=== PATIENT | male | born 1955 | race Caucasian/White ===

== ENCOUNTER 2018-12-20 09:42 | Observation (INO) | payer MEDICARE ==
--- NOTE | 2018-12-20 10:18 | ER Document Report ---
ED General - General Chief Complaint: Altered Mental Status Stated Complaint: CONFUSION Time Seen by Provider: 12/20/18 09:57 Information source: Patient Notes: 63-year-old male with past medical history of high blood pressure who presents today with his after the patient had sexual intercourse this morning. Abo ut 10 minutes after sexual intercourse the patient was walking around and was confused, as noted by the . No focal weakness or numbness, facial drooping, or chest pain. The patient denies any and all headache or neck pain. Patient denies any sildenafil or Viagra or other rectal medications. This lasted around 45 minutes. Patient is currently symptom-free and is back to baseline according to patient's and patient. No history of this previously. Patient does have a high blood pressure and has been slightly decreasing his metoprolol secondary to sexual dysfunction caused by this medication. - HPI Onset: Other - See above Associated symptoms: Other - See above Exacerbated by: Denies Relieved by: Denies Similar symptoms previously: No Recently seen / treated by doctor: No - Related Data Allergies/Adverse Reactions: No Known Allergies Allergy (Unverified 12/20/18 09:44) Past Medical History - Social History Smoking Status: Unknown if Ever Smoked Family History: Reviewed & Not Pertinent Review of Systems - Review of Systems Constitutional: denies: Fever EENT: denies: Eye discharge, Nose discharge Cardiovascular: denies: Chest pain, Palpitations, Syncope Respiratory: denies: Short of breath Gastrointestinal: denies: Vomiting Genitourinary: denies: Dysuria Musculoskeletal: denies: Leg swelling Skin: Other - no hives. denies: Rash Neurological/Psychological: Other - no slurred speech -: Yes All other systems reviewed and negative Physical Exam - Vital signs Vitals: Temp Pulse Resp BP Pulse Ox 97.6 F 78 16 160/99 H 100 12/20/18 09:54 12/20/18 09:54 12/20/18 09:54 12/20/18 09:54 12/20/18 09:54 Notes: Reviewed vital signs and nursing note as charted by RN. CONSTITUTIONAL: Alert and oriented and responds appropriately to questions. Well-appearing; well-nourished HEAD: Normocephalic; atraumatic EYES: PERRL; full extraocular range of motion without nystagmus noted ENT: Normal nose; no rhinorrhea; moist mucous membranes; pharynx without lesions noted NECK: Supple without meningismus; non-tender; no cervical lymphadenopathy, no masses CARD: Regular rate and rhythm; no murmurs; symmetric distal pulses RESP: Normal chest excursion without splinting or tachypnea; breath sounds clear and equal bilaterally ABD/GI: Normal bowel sounds; non-distended; soft, non-tender; no palpable organomegaly or masses BACK: The back appears normal and is non-tender to palpation EXT: Normal ROM in all joints; non-tender to palpation; no edema SKIN: No acute lesions noted NEURO: CN 2-12 intact; 5/5 bilateral upper and lower extremity strength with sensation intact to light touch; no cerebellar deficits. NIH score of 0 taken at 10:02 AM PSYCH: The patient's mood and manner are appropriate. Grooming and personal hygiene are appropriate. Course - Re-evaluation Re-evalutation: 12/20/18 10:16 Given the history and physical examination with an NIH score of 0, I do not believe that the patient is a TPA candidate at this time. Given the lack of headache, neck pain, no recent trauma, no current focal neurological deficits, I do believe subarachnoid hemorrhage to be extremely unlikely. Patient symptoms have completely resolved. I am concerned mostly about a TIA at this moment. If the CT scan of the head is unremarkable, I will provide aspirin and most likely admit the patient for further assessment and evaluation. EKG shows a heart of 89, abnormal rhythm with what appears to be dropped beats with no obvious signs of [place] prolongation. No ST elevation or depression. Patie nt is on the monitor. Cardiology has been consulted. 12/20/18 10:25 Repeat EKG shows a heart rate of 92, normal sinus rhythm, no ST elevation or depression, less rhythmic pattern showing what appears to be PACs. Dr. Lester the rural route carrier will review the EKGs himself personally. 12/20/18 10:36 Hair Boiler Operator called back and states he believes it is just frequent PACs. Still no focal neurological deficits. 12/20/18 11:21 CT scan of the head as recorded. Still no focal neurological deficits or confusion. Patient will be admitted to the hospitalist for further evaluation and treatment. Aspirin has been provided. - Vital Signs Vital signs: Temp Pulse Resp BP Pulse Ox 97.6 F 78 16 160/99 H 100 12/20/18 09:54 12/20/18 09:54 12/20/18 09:54 12/20/18 09:54 12/20/18 09:54 - Laboratory Result Diagrams: 12/20/18 10:00 12/20/18 10:00 Laboratory results interpreted by me: 12/20/18 10:00 Monocytes % 17.3 H Discharge - Discharge Clinical Impression: TIA (transient ischemic attack) Condition: Fair Disposition: ADMITTED OBSERVATION Admitting Provider: Hospitalist Unit Admitted: Telemetry
[2018-12-20 10:38] LABS: ABSOLUTE BASOPHILS # (AUTO) 0.1 10^3/uL (0.0-0.2); ABSOLUTE EOSINOPHILS # (AUTO) 0.1 10^3/uL (0.0-0.6); ABSOLUTE LYMPHOCYTES (AUTO) 1.1 10^3/uL (0.5-4.7); ABSOLUTE MONOCYTES (AUTO) 1.2 10^3/uL (0.1-1.4); ABSOLUTE NEUT (AUTO) 4.4 10^3/uL (1.7-8.2); BASOPHILS % (AUTO) 0.9 % (0-2); EOSINOPHILS % (AUTO) 0.8 % (0-6); HEMOGLOBIN 14.8 g/dL (13.5-17.0); LYMPHOCYTES % (AUTO) 16.2 % (13-45); MEAN CORPUSCULAR HEMOGLOBIN 32.8 pg (27.0-33.4); MEAN CORPUSCULAR HGB CONC 35.3 g/dL (32.0-36.0); MEAN CORPUSCULAR VOLUME 93 fl (80-97); MONOCYTES % (AUTO) 17.3 % (3-13); PLATELET COUNT 247 10^3/uL (150-450); RED BLOOD COUNT 4.51 10^6/uL (4.35-5.55); RED CELL DISTRIBUTION WIDTH 12.7 % (11.5-14.0); SEGMENTED NEUTROPHILS % (AUTO) 64.8 % (42-78); TOTAL CELLS COUNTED % (AUTO) 100 %; WHITE BLOOD COUNT 6.8 10^3/uL (4.0-10.5)
[2018-12-20 10:50] LABS: ANION GAP 10 (5-19); BLOOD UREA NITROGEN 10 mg/dL (7-20); CALCIUM 9.6 mg/dL (8.4-10.2); CARBON DIOXIDE 28 mmol/L (22-30); CHLORIDE 102 mmol/L (98-107); GLUCOSE 110 mg/dL (75-110); POTASSIUM 4.2 mmol/L (3.6-5.0); SODIUM 140.3 mmol/L (137-145)
--- NOTE | 2018-12-20 11:19 | RADIOLOGY REPORT (SQ) ---
EXAM DESCRIPTION: CT HEAD WITHOUT COMPLETED DATE/TIME: 12/20/2018 10:52 am REASON FOR STUDY: 2; period of confusion after sexual intercourse COMPARISON: None. TECHNIQUE: Axial images acquired through the brain without intravenous contrast. Images reviewed wi th bone, brain and subdural windows. Additional sagittal and coronal reconstructions were generated. Images stored on PACS. All CT scanners at this facility use dose modulation, iterative reconstruction, and/or weight based d osing when appropriate to reduce radiation dose to as low as reasonably achievable (ALARA). [facility]: Dose Right [facility]: CareDose [facility]: Dose Right [facility]: Teradose 4D [facility]: Smart Xtone RADIATION DOSE: CT Rad equipment meets quality standard of care and radiation dose reduction techniq ues were employed. CTDIvol: 53.2 mGy. DLP: 1044 mGy-cm. mGy. LIMITATIONS: None. FINDINGS: VENTRICLES: Normal size and contour. CEREBRUM: No masses. No hemorrhage. No midline shift. No evidence for acute infarction. Normal gra y/white matter differentiation. No areas of low density in the white matter. CEREBELLUM: No masses. No hemorrhage. No alteration of density. No evidence for acute infarction. EXTRAAXIAL SPACES: No fluid collections. No masses. ORBITS AND GLOBE: No intra- or extraconal masses. Normal contour of globe without masses. CALVARIUM: No fracture. PARANASAL SINUSES: No fluid or mucosal thickening. SOFT TISSUES: No mass or hematoma. OTHER: No other significant finding. IMPRESSION: NORMAL BRAIN CT WITHOUT CONTRAST. EVIDENCE OF ACUTE STROKE: NO. COMMENT: Quality ID # [id number]: Final reports with documentation of one or more dose reduction techniques (e.g., Automated exposure control, adjustment of the mA and/or kV according to patient size, use of iterative reconstruction technique) TECHNICAL DOCUMENTATION: JOB ID: [id number] [place] [employer]- All Rights Reserved Reading location - IP/workstation name: [email or web address]
[2018-12-20] MEDS ORDERED: ASPIRIN 325 MG TABLET PO ONE (11:22)
--- NOTE | 2018-12-20 12:05 | EKG REPORT ---
SEVERITY:- ABNORMAL ECG - SINUS RHYTHM MULTIPLE ATRIAL PREMATURE COMPLEXES BORDERLINE PROLONGED QT INTERVAL : Confirmed by: Carson Riley MD 20-Dec-2018 12:04:15
--- NOTE | 2018-12-20 12:21 | EKG REPORT ---
SEVERITY:- ABNORMAL ECG - SINUS RHYTHM WITH PACS LOW VOLTAGE IN FRONTAL LEADS : Confirmed by: Carson Riley MD 20-Dec-2018 12:20:34
--- NOTE | 2018-12-20 14:12 | PDOC H&P ---
History of Present Illness Admission Date/PCP: 12/20/18 11:46 History of Present Illness: MARTIN CINTRON is a 63 year old male who has history of hypertension. Patient presents to the emergency room accompanied by his due to acute episode of confusion and amnesia. Patient has hypertension and was prescribed metoprolol but does not take it because it causes some sexual dysfunction. Apparently he had sexual intercourse with his earlier this morning. Shortly after that he was wandering around the house confused. He could not identify the dog stories. His speech was normal. His gait was normal. There was no focal weakness. This episode lasted about an hour before it resolved spontaneously. Patient has amnesia about the episode. Past Medical History Cardiac Medical History: Reports: Hypertension Past Surgical History Past Surgical History: Reports: Orthopedic Surgery - back Social History Smoking Status: Unknown if Ever Smoked Family History Family History: Reviewed & Not Pertinent, Other - His brother has abdominal aneurysm Parental Family History Reviewed: Yes Children Family History Reviewed: NA Sibling(s) Family History Reviewed.: NA Medication/Allergy Home Medications: Cholecalciferol (Vitamin D3) [Vitamin D3 2000 unit Tablet] 2,000 unit PO DAILY 12/20/18 Chromium Picolinate [Chromium Picolinate 200 mcg Tablet] 200 mcg PO DAILY PRN 12/20/18 Fluoxetine HCl [Prozac 20 mg Capsule] 20 mg PO DAILY 12/20/18 Gabapentin [Neurontin 100 mg Capsule] 300 mg PO QHS 12/20/18 Hydrocodone/Acetaminophen [Adrian 7.5-325 mg Tablet] 1 tab PO TID 12/20/18 Ibuprofen [Advil] 600 mg PO NOON PRN 12/20/18 Metoprolol Succinate [Toprol Xl] 25 mg PO DAILY 12/20/18 Multivit-Min/FA/Lycopen/Lutein [Centrum Silver Men Tablet] 1 each PO DAILY 12/20/18 Ubidecarenone [Co Q-10] 200 mg PO DAILY 12/20/18 Allergies/Adverse Reactions: No Known Allergies Allergy (Unverified 12/20/18 12:15) Review of Systems All systems: reviewed and no additional remarkable complaints except as stated Physical Exam Vital Signs: Temp Pulse Resp BP Pulse Ox 97.6 F 72 16 147/92 H 100 12/20/18 09:54 12/20/18 10:15 12/20/18 10:15 12/20/18 10:15 12/20/18 10:15 Intake & Output 12/19/18 12/20/18 12/21/18 06:59 06:59 06:59 Weight 205 lb 11.06 oz General appearance: PRESENT: no acute distress, cooperative Head exam: PRESENT: atraumatic, normocephalic Eye exam: PRESENT: conjunctival injection, EOMI, PERRLA. ABSENT: nystagmus Ear exam: ABSENT: bleeding, drainage Mouth exam: PRESENT: moist, neck supple Throat exam: ABSENT: tonsillar exudate, tonsillogmegaly Neck exam: ABSENT: meningismus, tenderness, thyromegaly, tracheostomy Respiratory exam: PRESENT: clear to auscultation precious. ABSENT: accessory muscle use Cardiovascular exam: PRESENT: RRR. ABSENT: bradycardia, diastolic murmur, systolic murmur Pulses: PRESENT: normal carotid pulses, normal radial pulses GI/Abdominal exam: PRESENT: normal bowel sounds, soft. ABSENT: tenderness Rectal exam: PRESENT: deferred Extremities exam: ABSENT: clubbing, joint swelling, pedal edema Musculoskeletal exam: PRESENT: ambulatory. ABSENT: deformity Neurological exam: PRESENT: alert, awake, oriented to person, oriented to place, oriented to time, oriented to situation Psychiatric exam: PRESENT: appropriate affect. ABSENT: agitated, anxious, flat affect, homicidal ideation, suicidal ideation Focused psych exam: ABSENT: catatonic, delusional, euphoric, flight of ideas Skin exam: PRESENT: dry, intact. ABSENT: abrasion, cyanosis, erythema Results Laboratory Results: 12/20/18 10:00 12/20/18 10:00 12/20/18 12/20/18 10:00 10:00 WBC 6.8 RBC 4.51 Hgb 14.8 Hct 42.0 MCV 93 MCH 32.8 MCHC 35.3 RDW 12.7 Plt Count 247 Seg Neutrophils % 64.8 Lymphocytes % 16.2 Monocytes % 17.3 H Eosinophils % 0.8 Basophils % 0.9 Absolute Neutrophils 4.4 Absolute Lymphocytes 1.1 Absolute Monocytes 1.2 Absolute Eosinophils 0.1 Absolute Basophils 0.1 Sodium 140.3 Potassium 4.2 Chloride 102 Carbon Dioxide 28 Anion Gap 10 BUN 10 Creatinine 0.73 Est GFR ( Amer) > 60 Est GFR (Non-Af Amer) > 60 Glucose 110 Calcium 9.6 12/20/18 10:00 Troponin I < 0.012 Impressions: Head CT 12/20/18 09:57 IMPRESSION: NORMAL BRAIN CT WITHOUT CONTRAST. EVIDENCE OF ACUTE STROKE: NO. Assessment & Plan - Diagnosis (1) TIA (transient ischemic attack) Is this a current diagnosis for this admission?: Yes Plan: This patient observation with telemetry. Continue to monitor blood pressure and heart rate. Check MRI of the brain, echocardiogram, carotid ultrasound. Check lipid profile and hemoglobin A1c. Consult physical and occupational therapy. Start IV fluids. Aspirin. DVT prophylaxis. (2) HTN (hypertension) Is this a current diagnosis for this admission?: Yes Plan: Continue to monitor blood pressure. Hold metoprolol for now. If need antihypertensive medication will start a different medication.
[2018-12-20] MEDS ORDERED: HYDROCODONE/ACETAMINOPHEN 7.5-325 MG TABLET PO ONE (14:47)
[2018-12-20] MEDS ORDERED: IBUPROFEN 600 MG PO PRN (17:52)
[2018-12-20] MEDS ORDERED: HYDROCODONE/ACETAMINOPHEN 7.5-325 MG TABLET PO SCH (18:00)
[2018-12-20] MEDS ORDERED: IBUPROFEN 600 MG TABLET PO PRN (18:02)
[2018-12-20] MEDS: HYDROCODONE/ACETAMINOPHEN 7.5-325 MG TABLET PO PRN (20:44)
[2018-12-20] MEDS: RINGERS SOLUTION,LACTATED 1,000 ML IV PRN (21:28)
[2018-12-20] MEDS ORDERED: GABAPENTIN 300 MG CAPSULE PO SCH (22:00)
[2018-12-20] MEDS ORDERED: GABAPENTIN 100 MG CAPSULE PO SCH (22:00)
--- NOTE | 2018-12-20 22:54 | RADIOLOGY REPORT (SQ) ---
MR BRAIN WITHOUT IV CONTRAST HISTORY: Altered mental status. COMPARISON: Head CT from earlier the same day. TECHNIQUE: Multisequence, multiplanar MR imaging of the brain was performed without the administration of intravenous gadolinium. FINDINGS: The ventricles and sulci are normal in size. There are scattered areas of T2/FLAIR hyperintense foci are seen in the supratentorial white matter, likely representing chronic microvascular ischemia. There is no acute infarction, intracranial hemorrhage, extra-axial fluid collection, or mass. The brainstem, posterior fossa, and cervicomedullary junction are preserved. The intravascular flow voids are preserved. The orbits are unremarkable. No abnormality of the skull base or calvarium is seen. There is a small retention cyst in the right posterior ethmoid air cell. IMPRESSION: 1. No evidence of acute infarction. 2. Mild chronic microvascular ischemic disease.
[2018-12-21 05:14] LABS: ABSOLUTE EOSINOPHILS # (AUTO) 0.1 10^3/uL (0.0-0.6); ABSOLUTE MONOCYTES (AUTO) 1.3 10^3/uL (0.1-1.4); ABSOLUTE NEUT (AUTO) 4.4 10^3/uL (1.7-8.2); BASOPHILS % (AUTO) 0.6 % (0-2); EOSINOPHILS % (AUTO) 1.4 % (0-6); HEMATOCRIT 40.6 % (37.9-51.0); HEMOGLOBIN 14.2 g/dL (13.5-17.0); LYMPHOCYTES % (AUTO) 14.7 % (13-45); MEAN CORPUSCULAR HEMOGLOBIN 32.6 pg (27.0-33.4); MEAN CORPUSCULAR VOLUME 93 fl (80-97); PLATELET COUNT 209 10^3/uL (150-450); RED BLOOD COUNT 4.35 10^6/uL (4.35-5.55); SEGMENTED NEUTROPHILS % (AUTO) 64.3 % (42-78); TOTAL CELLS COUNTED % (AUTO) 100 %; WHITE BLOOD COUNT 6.8 10^3/uL (4.0-10.5)
[2018-12-21 05:36] LABS: ALANINE AMINOTRANSFERASE 23 U/L (21-72); ALBUMIN 4.1 g/dL (3.5-5.0); ALKALINE PHOSPHATASE 60 U/L (38-126); ANION GAP 8 (5-19); ASPARTATE AMINO TRANSFERASE 24 U/L (17-59); BILIRUBIN,DIRECT 0.2 mg/dL (0.0-0.4); BILIRUBIN,TOTAL 0.5 mg/dL (0.2-1.3); BLOOD UREA NITROGEN 11 mg/dL (7-20); CALCIUM 9.4 mg/dL (8.4-10.2); CARBON DIOXIDE 26 mmol/L (22-30); CHLORIDE 108 mmol/L (98-107); CHOLESTEROL 168.76 mg/dL (0-200); GLUCOSE 100 mg/dL (75-110); POTASSIUM 4.2 mmol/L (3.6-5.0); SODIUM 142.4 mmol/L (137-145); TOTAL PROTEIN 6.4 g/dL (6.3-8.2); TRIGLYCERIDES 144 mg/dL (<150)
[2018-12-21 05:47] LABS: DIRECT LDL 97 mg/dL (<100)
[2018-12-21] MEDS: HYDROCODONE/ACETAMINOPHEN 7.5-325 MG TABLET PO PRN ×2 (07:03→16:16)
[2018-12-21] MEDS: RINGERS SOLUTION,LACTATED 1,000 ML IV PRN (09:23)
[2018-12-21] MEDS ORDERED: MULTIVITAMIN TABLET PO SCH (10:00)
[2018-12-21] MEDS ORDERED: ASPIRIN 325 MG TABLET, ENT COATED PO SCH (10:00)
[2018-12-21] MEDS ORDERED: (PENDING PHARMACY ID) (Cholecalciferol (Vitamin D3) [Vitamin D3 2000 Unit Tablet] 2,000 UN PO SCH (10:00)
[2018-12-21] MEDS ORDERED: (PENDING PHARMACY ID) (Multivit-Min/Fa/Lycopen/Lutein [Centrum Silver Men Tablet] 1 EACH) PO SCH (10:00)
[2018-12-21] MEDS ORDERED: ENOXAPARIN SODIUM INJ 40 MG/0.4 ML DISP.SYRIN SUBCUT SCH (10:00)
[2018-12-21] MEDS ORDERED: FLUOXETINE HCL 20 MG CAPSULE PO SCH (10:00)
[2018-12-21] MEDS ORDERED: (PENDING PHARMACY ID) (Ubidecarenone [Co Q-10] 200 MG) PO SCH (10:00)
[2018-12-21] MEDS ORDERED: CHOLECALCIFEROL (D3) 1,000 UNIT TABLET PO SCH (10:00)
[2018-12-21] MEDS ORDERED: GUAIFENESIN 600 MG TABLET.SA PO ONE (14:00)
[2018-12-21 16:19] VITALS: BP 123/71
--- NOTE | 2018-12-21 17:50 | RADIOLOGY REPORT (SQ) ---
EXAM DESCRIPTION: CAROTID DOPPLER COMPLETED DATE/TIME: 12/20/2018 8:00 pm REASON FOR STUDY: TIA I10 ESSENTIAL (PRIMARY) HYPERTENSION R41.82 ALTERED MENTAL STATUS, UNSPECIFI ED R73.9 HYPERGLYCEMIA, UNSPECIFIED COMPARISON: None. TECHNIQUE: Grayscale ultrasound, Doppler velocity and spectra, and color Doppler images acquired of the extra-cranial carotid and vertebral arteries. Images stored on PACS. LIMITATIONS: None. FINDINGS: RIGHT CAROTID CCA Velocities: Within normal limits. ICA Velocities Peak systolic 78 cm/s. End diastolic 30 cm/s. Proximal ICA/CCA peak systolic ratio 1.1. Spectra normal. No significant plaque. LEFT CAROTID CCA Velocities: Within normal limits. ICA Velocities Peak systolic 74 cm/s. End diastolic 26 cm/s. Proximal ICA/CCA peak systolic ratio 1.1. Spectra normal. No significant plaque. VERTEBRAL ARTERIES: Antegrade flow. Normal waveforms. SUBCLAVIAN ARTERIES: No finding. OTHER: No other significant finding. IMPRESSION: NO HEMODYNAMICALLY SIGNIFICANT STENOSIS. COMMENT: Quality ID #[id number]: Velocity criteria are extrapolated from the diameter data as defined by t he Society of Radiologists in Ultrasound Consensus Conference. Radiology 2003: 229; 340-346. TECHNICAL DOCUMENTATION: JOB ID: [id number] [place]-72 2010 [employer]- All Rights Reserved Reading location - IP/workstation name: [email or web address]
[2018-12-21] MEDS ORDERED: GUAIFENESIN 600 MG TABLET.SA PO SCH (18:00)
--- NOTE | 2018-12-21 18:35 | PDOC DISCHARGE SUMMARY ---
General - Admit/Disc Date/PCP Admission Date/Primary Care Provider: 12/20/18 11:46 Discharge Date: 12/21/18 - Discharge Diagnosis (1) TIA (transient ischemic attack) Is this a current diagnosis for this admission?: Yes (2) HTN (hypertension) Is this a current diagnosis for this admission?: Yes - Additional Information Resuscitation Status: Full Code Discharge Diet: As Tolerated Discharge Activity: Activity As Tolerated Home Medications: RX: Cholecalciferol (Vitamin D3) [Vitamin D3 2000 unit Tablet] 2,000 unit PO DAILY 12/20/18 RX: Chromium Picolinate [Chromium Picolinate 200 mcg Tablet] 200 mcg PO DAILY PRN 12/20/18 RX: Fluoxetine HCl [Prozac 20 mg Capsule] 20 mg PO DAILY 12/20/18 RX: Gabapentin [Neurontin 100 mg Capsule] 300 mg PO QHS 12/20/18 RX: Hydrocodone/Acetaminophen [[employer] 7.5-325 mg Tablet] 1 tab PO TID 12/20/18 RX: Multivit-Min/FA/Lycopen/Lutein [Centrum Silver Men Tablet] 1 each PO DAILY 12/20/18 RX: Ubidecarenone [Co Q-10] 200 mg PO DAILY 12/20/18 RX: Aspirin [Ecotrin 325 mg EC Tablet] 81 mg PO DAILY tabec 12/21/18 RX: Guaifenesin [Mucinex Sr 600 mg Tablet.sa] 600 mg PO BID tablet.sa 12/21/18 History of Present Illness History of Present Illness: MARTIN CINTRON is a 63 year old male who has history of hypertension. Patient presents to the emergency room accompanied by his due to acute episode of confusion and amnesia. Patient has hypertension and was prescribed metoprolol but does not take it because it causes some sexual dysfunction. Apparently he had sexual intercourse with his earlier this morning. Shortly after that he was wandering around the house confused. He could not identify the dog stories. His speech was normal. His gait was normal. There was no focal weakness. This episode lasted about an hour before it resolved spontaneously. Patient has amnesia about the episode. Hospital Course Hospital Course: Patient was admitted for observation. He was admitted to telemetry. He was in sinus rhythm. Carotid ultrasound is unremarkable for significant stenosis. Continue to be asymptomatic throughout hospitalization. MRI was negative for any acute stroke. Echocardiogram shows normal ejection fraction. He should follow-up with cardiology Dr. Lester outpatient. Patient stable for discharge. Physical Exam Vital Signs: Temp Pulse Resp BP Pulse Ox 97.9 F 69 19 123/71 99 12/21/18 16:09 12/21/18 16:09 12/21/18 16:09 12/21/18 16:09 12/21/18 16:09 Intake & Output 12/20/18 12/21/18 12/22/18 06:59 06:59 06:59 Intake Total 80 2850 Balance 80 2850 Weight 448 lb 6.723 oz General appearance: PRESENT: no acute distress, cooperative Head exam: PRESENT: atraumatic, normocephalic Eye exam: PRESENT: EOMI, PERRLA. ABSENT: conjunctival injection Mouth exam: PRESENT: moist, neck supple Throat exam: ABSENT: tonsillar exudate, tonsillogmegaly Neck exam: ABSENT: meningismus, tenderness Respiratory exam: PRESENT: clear to auscultation precious. ABSENT: accessory muscle use Cardiovascular exam: PRESENT: RRR Pulses: PRESENT: normal radial pulses GI/Abdominal exam: PRESENT: normal bowel sounds, soft. ABSENT: tenderness Rectal exam: PRESENT: deferred Extremities exam: ABSENT: joint swelling, pedal edema Musculoskeletal exam: PRESENT: ambulatory. ABSENT: deformity Neurological exam: PRESENT: alert, awake, oriented to person, oriented to place, oriented to time, oriented to situation. ABSENT: motor sensory deficit Psychiatric exam: PRESENT: appropriate affect. ABSENT: agitated, anxious Results Laboratory Results: 12/21/18 04:48 12/21/18 04:48 12/21/18 12/21/18 04:48 04:48 WBC 6.8 RBC 4.35 Hgb 14.2 Hct 40.6 MCV 93 MCH 32.6 MCHC 35.0 RDW 13.0 Plt Count 209 Seg Neutrophils % 64.3 Lymphocytes % 14.7 Monocytes % 19.0 H Eosinophils % 1.4 Basophils % 0.6 Absolute Neutrophils 4.4 Absolute Lymphocytes 1.0 Absolute Monocytes 1.3 Absolute Eosinophils 0.1 Absolute Basophils 0.0 Sodium 142.4 Potassium 4.2 Chloride 108 H Carbon Dioxide 26 Anion Gap 8 BUN 11 Creatinine 0.67 Est GFR ( Amer) > 60 Est GFR (Non-Af Amer) > 60 Glucose 100 Calcium 9.4 Total Bilirubin 0.5 AST 24 ALT 23 Alkaline Phosphatase 60 Total Protein 6.4 Albumin 4.1 Triglycerides 144 Cholesterol 168.76 LDL Cholesterol Direct 97 VLDL Cholesterol 29.0 HDL Cholesterol 37 L 12/20/18 10:00 Troponin I < 0.012 Impressions: Head MRI 12/20/18 00:00 IMPRESSION: 1. No evidence of acute infarction. 2. Mild chronic microvascular ischemic disease. Head CT 12/20/18 09:57 IMPRESSION: NORMAL BRAIN CT WITHOUT CONTRAST. EVIDENCE OF ACUTE STROKE: NO. Carotid Doppler Study 12/20/18 17:42 IMPRESSION: NO HEMODYNAMICALLY SIGNIFICANT STENOSIS. Qualifiers - * PATIENT BEING DISCHARGED WITH ANY OF THE FOLLOWING DIAGNOSIS: No
--- NOTE | 2018-12-21 21:40 | XCELERA REPORT ---
[address] [address] Transthoracic Echocardiogram Report Name: MARTIN CINTRON Age: 63 yrs Gender: Male : 1955 Patient Status: Inpatient Patient Location: [address] [place] [address] Study Date: 12/20/2018 06:16 PM Height: 70 in Weight: 202 lb BSA: 2.1 m2 Procedure: A two-dimensional transthoracic echocardiogram with color flow and Doppler was performed. Study Quality: Technically suboptimal. Poor endocardial visualisation , and poor doppler interogation. Reason For Study: TIA History: TIA. Ordering Physician: MILAGRO ROSE Performed By: Lucille Ortiz Interpretation Summary There is no obvious cardiac source of embolus noted on this transthoracic echocardiogram. Follow-up with a DELISA is suggested if cardiac source is still suspected. Poor endocardial visualisation , and poor doppler interogation. The left ventricle is normal in size. There is normal left ventricular wall thickness. LV EF is 60% The left ventricular ejection fraction is normal. Doppler measurements suggest impaired left ventricular relaxation, which is associated with grade I/IV or mild diastolic dysfunction Probably no regional wall motion abnormality,but cannot be sure. Not a good study to assess for thrombi. The right ventricle is not well visualized secondary to technical limitations The right ventricle is grossly normal size. The right atrium is normal. The left atrial size is normal. There is no evidence of mitral valve prolapse. There is no mitral valve stenosis. There is a trace amount of mitral regurgitation There is no aortic valve stenosis There is a trace amount of aortic regurgitation There is no tricuspid stenosis. There is a trace amount of tricuspid regurgitation Right ventricular systolic pressure is normal. RVSP is 28 mm of Hg , with RA mean of 10. There is no pericardial effusion. There is no obvious cardiac source of embolus noted on this transthoracic echocardiogram. Follow-up with a DELISA is suggested if cardiac source is still suspected MMode/2D Measurements & Calculations RVDd: 2.7 cm LVIDd: 5.2 cm FS: 31.1 % Ao root diam: 3.1 cm IVSd: 0.95 cm LVIDs: 3.6 cm EDV(Teich): 129.3 ml Ao root area: 7.4 cm2 LVPWd: 1.0 cm ESV(Teich): 53.7 ml LA dimension: 3.0 cm EF(Teich): 58.5 % Doppler Measurements & Calculations MV E max prince: MV P1/2t max prince: Ao V2 max: LV V1 max P.8 cm/sec 70.0 cm/sec 115.4 cm/sec 5.1 mmHg MV A max prince: MV P1/2t: 51.4 msec Ao max PG: LV V1 max: 94.3 cm/sec MVA(P1/2t): 4.3 cm2 5.3 mmHg 112.5 cm/sec MV E/A: 0.57 MV dec slope: 398.6 cm/sec2 MV dec time: 0.20 sec TV V2 max: PA V2 max: TR max prince: MV P1/2t-pr_phl: 83.4 cm/sec 65.2 cm/sec 213.8 cm/sec 51.4 msec TV max PG: PA max P.7 mmHg TR max P.8 mmHg 18.3 mmHg Left Ventricle The left ventricle is normal in size. There is normal left ventricular wall thickness. LV EF is 60%. The left ventricular ejection fraction is normal. Doppler measurements suggest impaired left ventricular relaxation, which is associated with grade I/IV or mild diastolic dysfunction. Probably no regional wall motion abnormality,but cannot be sure. Not a good study to assess for thrombi. Right Ventricle The right ventricle is not well visualized secondary to technical limitations. The right ventricle is grossly normal size. Atria The right atrium is normal. The left atrial size is normal. Mitral Valve There is no evidence of mitral valve prolapse. There is no vegetation seen on the mitral valve. There is no mitral valve stenosis. There is a trace amount of mitral regurgitation. Aortic Valve There is no aortic valvular vegetation. There is no aortic valve stenosis. There is a trace amount of aortic regurgitation. Tricuspid Valve There is no tricuspid stenosis. There is a trace amount of tricuspid regurgitation. Right ventricular systolic pressure is normal. RVSP is 28 mm of Hg , with RA mean of 10. Pulmonic Valve There is no pulmonic valvular stenosis. There is no pulmonic valvular regurgitation. Great Vessels The aortic root is not well visualized. Effusions There is no pericardial effusion. : MILAGRO ROSE > Angeli Antonio
== END 2018-12-21 18:46 | disposition home or self-care (01) ==
LOC: ER 09:42 → EH 11:46 → 3S 16:54
PROVIDERS: ADMIT Internal Medicine; ATTEND Internal Medicine
DX: G45.9 Transient cerebral ischemic attack, unspecified (principal); I10 Essential (primary) hypertension; Z79.82 Long term (current) use of aspirin; Z79.899 Other long term (current) drug therapy; Z91.14 Patient's other noncompliance with medication regimen
CPT/HCPCS: 93005; 99285; 36415 ×2; 85025 ×2; 80048; 80053; 84484; 83036; 80061; 93306; 93880; 70551; 70450; 93010; 97161; A9270 ×10; J1650; J3490; J7120 ×2; G0378